=== PATIENT | female | born 1960 | race African-American/Black ===

== ENCOUNTER 2018-12-05 21:44 | Emergency (ER) | payer OTHER, SELFPAY ==
[~2018-12-05] VITALS: Ht 160 cm; Wt 60.0 kg
[2018-12-05] MEDS ORDERED: DOCUSATE SODIUM 100MG CAPSULE PO ONE (23:45)
[2018-12-06 00:10] LABS: CLARITY URINE TURBID (CLEAR); COLOR URINE YELLOW (YELLOW); KETONES URINE TRACE (NEGATIVE); LEUKOCYTE ESTERASE URINE 2+ (NEGATIVE); NITRITE URINE POSITIVE (NEGATIVE); OCCULT BLOOD URINE NEGATIVE (NEGATIVE); PROTEIN URINE 1+ (NEGATIVE); SPECIFIC GRAVITY URINE 1.036 (1.005-1.030)
[2018-12-06] MEDS ORDERED: SULFAMETHOXAZOLE/TRIMETHOPRIM 800/160MG TABLET PO NR (01:30)
[2018-12-06 02:24] VITALS: BP 140/80
== END 2018-12-06 02:32 | disposition home or self-care (01) ==
LOC: ER 21:44
DX: N39.0 Urinary tract infection, site not specified (principal); K59.00 Constipation, unspecified
CPT/HCPCS: 99283